=== PATIENT | female | born 1985 | race Caucasian/White ===

== ENCOUNTER 2020-12-08 23:57 | Emergency (ER) | payer BC ==
[~2020-12-08] VITALS: Ht 170.2 cm; Wt 79.4 kg
== END 2020-12-09 03:13 | disposition home or self-care (01) ==
LOC: ER 23:57
DX: R07.9 Chest pain, unspecified (principal); J45.909 Unspecified asthma, uncomplicated; Z88.1 Allergy status to other antibiotic agents; Z86.16 Personal history of COVID-19; Z79.899 Other long term (current) drug therapy
CPT/HCPCS: 36415; 80053; 84484; 85025; 93005; 93010; 96374; 99285-25

== ENCOUNTER → 2021-05-03 | Outpatient (CLI) | payer BC ==
[~2021-05-03] MED LIST: FLUTICASONE-SA1 EAC9 INH; Ventolin/Prove6.7 GM
== END | disposition home or self-care (01) ==
LOC: LAB 15:23 → LAB SHORT 15:23
DX: D22.72 Melanocytic nevi of left lower limb, including hip (principal)
CPT/HCPCS: 88305